=== PATIENT | female | born 1975 | race Hispanic/Latino ===

== ENCOUNTER 2024-05-08 15:12 | Emergency (ER) | payer SELFPAY ==
[~2024-05-08] VITALS: Ht 170.2 cm; Wt 72.0 kg
[2024-05-08] MEDS ORDERED: diazePAM 10 MG/2 ML VIAL IV ONE (15:20)
[2024-05-08] MEDS ORDERED: KETOROLAC TROMETHAMINE 30 MG/ML SDV IV ONE (15:20)
[2024-05-08] MEDS ORDERED: PREDNISONE20 MG PO (15:27)
[2024-05-08] MEDS ORDERED: ALBUTEROL108 MCG/AC INHW/SPAC (15:29)
[2024-05-08 15:45] VITALS: BP 122/67
[2024-05-08 16:00] VITALS: BP 112/69
[2024-05-08 16:15] VITALS: BP 108/65
[2024-05-08 16:30] VITALS: BP 115/70
[2024-05-08] MEDS ORDERED: METHOCARBAMOL500 MG PO (16:44)
[2024-05-08 16:45] VITALS: BP 106/67
[2024-05-08 16:49] VITALS: BP 106/67
== END 2024-05-08 16:56 | disposition home or self-care (01) | DRG 552 ==
LOC: ED 15:12
DX: M54.2 Cervicalgia (principal); M25.572 Pain in left ankle and joints of left foot; Y04.8XXA Assault by other bodily force, initial encounter
CPT/HCPCS: J3360